=== PATIENT | female | born 1960 | race Caucasian/White ===

== ENCOUNTER 2023-07-06 04:39 | Emergency (ER) | payer BC, SELFPAY ==
[2023-07-06 05:00] VITALS: BP 143/91
[2023-07-06 05:01] VITALS: BP 143/91
[2023-07-06 05:05] LABS: % Basophils 0.9 % (0-2); % Eosinophils 0.5 % (0-6); % Immature Granulocytes 0.4 % (0-0.5); % Lymphocytes 17.5 % (20.5-51.1); % Monocytes 7.6 % (1.7-9.3); % Neutrophils 73.1 % (42.2-75.2); Absolute Basophils 0.1 10^3/uL (0-0.2); Absolute Eosinophils 0.1 10^3/uL (0-0.7); Absolute Immature Granulocytes 0.1 10^3/uL (0-0.05); Absolute Monocytes 0.9 10^3/uL (0.1-0.6); Absolute Neutrophils 8.5 10^3/uL (1.4-6.5); Hemoglobin 13.5 g/dL (12.0-16.0); Mean Corp Hgb Conc. 34.6 g/dL (33.0-37.0); Mean Corpuscular Hgb 29.2 pg (27.0-31.0); Mean Corpuscular Volume 84.2 fL (81.0-99.0); Nucleated Red Blood Cells % 0 %; Platelet Count 300 10^3/uL (130-400); Red Blood Cell Count 4.63 10^6/uL (4.20-5.40); Red Cell Dist. Width 13.6 % (11.5-14.5); White Blood Cell Count 11.6 10^3/uL (4.8-10.8)
[2023-07-06 05:19] LABS: ALT (SGPT) 49 U/L (0-35); AST (SGOT) 30 U/L (14-36); Albumin 4.7 g/dl (3.5-5.0); Alkaline Phosphatase 104 U/L (38-126); Blood Urea Nitrogen 19 mg/dl (7-17); Calcium 9.9 mg/dl (8.4-10.2); Carbon Dioxide 26 mmol/L (22-30); Chloride 108 mmol/L (98-107); Estimated Creatinine Clearance 80 ml/min; Glucose 107 mg/dl (70-99); Potassium 4.2 mmol/L (3.5-5.1); Sodium 139 mmol/L (135-145); Total Bilirubin 0.5 mg/dl (0.2-1.3); Total Protein 7.5 g/dl (6.3-8.2); eGFR > 60.00
[2023-07-06 05:31] LABS: Troponin I < 0.012 ng/ml
[2023-07-06 06:00] VITALS: BP 137/89
--- NOTE | 2023-07-06 06:24 | ED.GENMED ---
History of Present Illness
General
Chief Complaint: Chest Pain
Time Seen by Provider: 07/06/23 06:24
Travel History
Have you had any contact with someone who has COVID-19?: No
Do you have any symptoms of coronavirus? Fever > 100 degrees, chills, cough, shortness of breath, sore throat, loss of taste or smell, muscle aches, or headache?: No
History of Present Illness
History of Present Illness:
HPI: Patient presents with chest discomfort. This described as an achiness. She has no exertional symptoms. The symptoms can come on at any time. Tonight at around 3 AM, woke her from sleep. She has had issues with GI symptoms in the
past/reflux. She is currently taking esomeprazole and also is on Pepcid.
EXAM:
GENERAL: Well appearing in no distress
HEENT: Moist oral mucosa
CARDIOVASCULAR: No murmurs, normal heart rate, regular rhythm, No chest wall tenderness
PULMONARY: No respiratory distress, breath sounds are clear and equal
ABDOMEN: Soft with no peritoneal signs, no tenderness
NEUROLOGIC: Excellent strength all extremities, no coordination deficits
PSYCHIATRIC: Appropriate mental status, normal insight and judgement
EXTREMITIES: Nontender, no edema, moves all extremities equally
SKIN: No rash, no lesions
TIME OF INITIAL ENCOUNTER: 6:30 AM
NUMBER AND COMPLEXITY OF PROBLEMS ADDRESSED AT THE ENCOUNTER
� Chronic conditions affecting care: High blood pressure, hyperlipidemia, GERD, depression, PTSD
� Acute Exacerbation and/or Progression of Chronic Illness: This is an acute problem
� Differential Diagnosis includes: GERD/reflux, ACS, pneumonia/pneumothorax very unlikely, chest wall pain
AMOUNT AND/OR COMPLEXITY OF DATA TO BE REVIEWED AND ANALYZED
� I performed an independent evaluation of and my interpretation is:
EKG: Sinus 73, leftward axis deviation no acute ST abnormality
CT:
X-rays: Chest x-ray shows no acute abnormality
Laboratory Studies: White count 11.6, hemoglobin normal, chemistries unremarkable, troponin less than 0.012
Other:
� Review of other/old records: The patient was seen here this past February with chest pain
� Clinical information was obtained by an independent historian: I spoke to the at bedside
� Prescriptions/Medications Considered but not given:
� Further testing considered but not performed:
RISK OF COMPLICATIONS AND/OR MORBIDITY OR MORTALITY OF PATIENT MANAGEMENT
� Social determinants of health affecting care: Lives at home
� Discussion with other providers: Dr. Sahni at 8 AM - he recommends admission to the hospital if patient symptoms are so severe to help expedite endoscopy but would likely not be able to be performed until tomorrow;
hospitalist for admission
� Escalation of care including admission/observation vs risk of discharge considered: EKG and troponin unremarkable, will try GI meds including Carafate. She is already on PPI/H2 dasha. On reassessment at 8 AM after meds
given, she reports no significant symptoms and states that her pain is still severe however she appears fairly comfortable to me. I have added higher dose of PPI.
Phy Exam
Physical Exam
Physical Exam:
See HPI
Scores
Heart Score for Chest Pain Patients
STEMI patient?: Not applicable
Course
Orders/Labs/Results
Orders:
Orders
07/06/23 04:40
Electrocardiogram (*1) Urgent
Reason for Study: Chest Pain
EKG- Treatment ONCE
07/06/23 04:57
CMP [Comprehensive Metabolic Panel] Urgent
Complete Blood Count/With Diff Urgent
Troponin I Urgent
07/06/23 06:35
Famotidine [Pepcid] 20 mg IV NOW STA
07/06/23 06:36
CR Chest - 2 Views Urgent
Comment:
Reason For Exam: cp
07/06/23 07:30
Sucralfate Suspension [Carafate Suspension] 1 gm PO ACHS
07/06/23 08:14
Pantoprazole [Protonix IV] 80 mg IV NOW STA
Abnormal Lab Results
07/06/23
04:57
WBC 11.6 H 10^3/uL
(4.8-10.8)
Abs Immat Gran (auto) 0.1 H 10^3/uL
(0-0.05)
Absolute Neuts (auto) 8.5 H 10^3/uL
(1.4-6.5)
Absolute Monos (auto) 0.9 H 10^3/uL
(0.1-0.6)
Lymphocytes % 17.5 L %
(20.5-51.1)
Chloride 108 H mmol/L
(98-107)
BUN 19 H mg/dl
(7-17)
Glucose 107 H mg/dl
(70-99)
ALT 49 H U/L
(0-35)
07/06/23 04:57
07/06/23 04:57
Vital Signs
Initial and Last Documented VS:
Initial Vital Signs
Pulse Resp Pulse Ox
80 22 98
07/06/23 04:44 07/06/23 04:44 07/06/23 04:44
Last Documented Vital Signs
Temp Pulse Resp BP Pulse Ox
98.2 F 77 21 142/104 95
07/06/23 04:53 07/06/23 07:30 07/06/23 07:30 07/06/23 07:00 07/06/23 06:30
*Critical Care Note
Total Time (30-74mins, 75-104mins- exclusive of procedures): Not Applicable
ED Attending Note
-
Portions of this chart may have been created with voice recognition software.� Occasional wrong word or��sound alike� substitutions may have occurred due to the inherent limitations of voice recognition software.
Discharge Plan
Departure
Patient Disposition: Admit
Date of Disposition: 07/06/23
Time of Disposition: 08:09
Presentation/result/management discussed w/ accepting MD/DO: Hospitalist
Discharge Problem:
Chest pain
Prescriptions:
No Action
cetirizine [Zyrtec] 10 mg Tablet
10 mg PO DAILY
famotidine 40 mg Tablet
40 mg PO DAILY
levothyroxine 75 mcg Tablet
75 mcg PO DAILY
lorazepam 0.5 mg Tablet
0.5 mg PO HS
amlodipine 10 mg Tablet
10 mg PO DAILY
esomeprazole magnesium 40 mg Capsule,Delayed Release(Dr/Ec)
40 mg PO Daily
valsartan 320 mg Tablet
360 mg PO DAILY
duloxetine 60 mg Capsule,Delayed Release(Dr/Ec)
90 mg PO DAILY
Rx Instructions:
60mg + 30mg dose
cholecalciferol (vitamin D3) [Vitamin D3] 25 mcg (1,000 unit) Tablet
25 mcg PO DAILY
omega 8-tbw-che-fish oil [Fish Oil] 1,200 (144-216) mg Capsule
1 cap PO DAILY
pitavastatin calcium [Livalo] 4 mg Tablet
4 mg PO QPM
Referrals:
Wyatt Ramos DO [Family Provider] -
Interventions
Interventions:
*Risk Screen - Suicide Last Done: 07/06/23 04:44
*General Assessment Last Done: 07/06/23 04:49
*Neglect/Abuse Screening Last Done: 07/06/23 04:44
ED- Fall Risk Assessment Last Done: 07/06/23 04:51
*ED COVID-19 Vaccine History Last Done: 07/06/23 04:49
ED- Cardiac Assessment Last Done: 07/06/23 04:51
Discharge Date and Time
Print Language: HEBREW
[2023-07-06] MEDS: CARAFATE SUSPENSION 1 GM PO (06:52)
[2023-07-06] MEDS: PEPCID 20 MG IV (06:52)
[2023-07-06 07:00] VITALS: BP 142/104
[2023-07-06 08:00] VITALS: BP 112/23
[2023-07-06] MEDS: PROTONIX IV 80 MG IV (08:35)
[2023-07-06 10:00] VITALS: BP 120/103
--- NOTE | 2023-07-06 10:05 | CON.GI ---
Addendum entered and electronically signed by Ayla Person MD 07/06/23 15:34:
I saw and examined the patient.
The MIXER HELPER or PA's note was reviewed and I agree with the note.
Comment:
Pt with a hx of breast ca with prior radiation, also gerd, hiatal hernia with previous dilations. She has had intermittent CP, no dysphagia. has been on PPI bid. cardiac w/u negative in ER. No pill lodged, no nsaids. symptoms severe so to the
ER. no hx of cold sores.
abd: soft, nontender
impression
gerd
odynophagia
plan:
PPI bid
maalox/lidocaine
EGD in am
ok for soft foods until then.
Addendum entered and electronically signed by ALLISON Chowdary 07/06/23 11:45:
Pt denies NSAID use
Original Note:
Consultation
-
Date/Time Consultation Requested: 07/06/23 0900
Date/Time Consultation Performed: 07/06/23 1000
Requesting Provider: Indra Felder DO
Performing Provider: ALLISON Caruso, Ayla Person MD
Reason for Consultation: chest pain
Medical History
Chief Complaint / HPI
Chief Complaint: chest pain
History of Present Illness:
Pt is a 62yo with hx breast CA with prior surgery and radiation, GERD, hiatal hernia, prior esophageal dilation overactive bladder with bladder implant, endometrial ablation with onset of chest pain. She had similar symptoms in past and follows
with Dr. Seth Obrien in [place]. She has been on Esomeprozole 40mg BID and Famotidine 40mg daily. She states hx prior esophageal dilation last about 1-2 years ago. She began several weeks ago with chest pain/chest ache then severe symptoms
over last 2 days. She was seen in ER today with stable troponin and EKG. She was give GI cocktail with Maalox, Lidocaine and with improvement and asked to see.
She admits to some odynophagia and occasional dysphagia in past. She does experience some GERD. She also admits to period of feeling sweaty or hot that have been going on for some time. No nausea/vomiting/hematemesis or wt loss. She does
have occasional constipation with citracel use but no diarrhea, rectal bleeding, or abdominal pain. Last colonoscopy about 1 year ago.
Past Medical History
Past Medical History: Cancer (breast CA 2016 with prior surgery, breast reduction and reconstruction and radiation) and Other (overactive bladder, Hiatal hernia, esophageal dilation, GERD)
Past Surgical History: Tonsilectomy and Other (plastic surgery on ear, endometrial ablation, lasik surgery, mole removal, bladder surgery with bladder implant)
Social History
Tobacco: Non-Smoker
Alcohol: Occasional
Drug: None
Personal:
Living: With Family
Employment: Retired (semi retired)
Family History
Family History: Other (family hx colon CA - father)
Allergies / Home Medications
Allergy/AdvReac Type Severity Reaction Status Date / Time
No Known Allergies Allergy Verified 07/06/23 04:46
�Medication �Instructions �Recorded
Calcium Adult Gummy W/ D3 2 gummy PO DAILY 07/06/23
Lactobac no.2-Bifidobac no.1-S. 1 cap PO DAILY 07/06/23
thermo 112.5 billion cell capsule
(Visbiome)
amlodipine 10 mg tablet 10 mg PO DAILY 07/06/23
cetirizine 10 mg tablet (Zyrtec) 10 mg PO DAILY 07/06/23
cholecalciferol (vitamin D3) 25 25 mcg PO DAILY 07/06/23
mcg (1,000 unit) tablet (Vitamin
D3)
coenzyme Q10 100 mg capsule 100 mg PO HS 07/06/23
(CoQ-10)
duloxetine 30 mg capsule,delayed 30 mg PO DAILY 07/06/23
release
duloxetine 60 mg capsule,delayed 60 mg PO DAILY 07/06/23
release
famotidine 40 mg tablet 40 mg PO HS 07/06/23
fluoride (sodium) 1.1 % dental 1 applic dental HS 07/06/23
paste (Sodium Fluoride 5000 Dry
Mouth)
levothyroxine 75 mcg tablet 75 mcg PO DAILY 07/06/23
lorazepam 0.5 mg tablet 0.5 mg PO HS 07/06/23
methylcellulose (laxative) 1 tbsp PO DAILY 07/06/23
(Citrucel Sugar Free oral powder)
methylcellulose (laxative) 500 mg 1,000 mg PO DAILY PRN constipation 07/06/23
tablet (Citrucel) while traveling
multivitamin with minerals-folic 2 tab PO DAILY 07/06/23
acid 200 mcg chewable tablet
(Multivitamin Gummies)
omega 3-kgy-jxd-fish oil 1,200 mg 1 cap PO DAILY 07/06/23
(144 mg-216 mg) capsule (Fish Oil)
omeprazole 40 mg capsule,delayed 40 mg PO BID 07/06/23
release
pitavastatin calcium 4 mg tablet 4 mg PO HS 07/06/23
valsartan 320 mg tablet 320 mg PO HS 07/06/23
Review of Systems
-
History Source: Patient and Family
Constitutional: Reports Other (sweats/hot flashes)
EENT: Reports Other (dysphagia, odynophagia)
Respiratory: Reports No Symptoms
Cardiac: Reports Chest Pain
Abdomen/GI: Reports Constipated
: Reports Other (hx overactive bladder with stimulator)
Musculoskeletal: Reports No Symptoms
Skin: Reports No Symptoms
Neurological: Reports Weakness
Endocrine: Reports No Symptoms
Hematologic/Lymphatic: Reports No Symptoms
Vital Signs
Temp Pulse Resp BP Pulse Ox
98.2 F 73 14 112/23 96
07/06/23 04:53 07/06/23 08:30 07/06/23 08:30 04/30/24 08:00 07/06/23 08:30
Physical Exam
Exam
General: Well Developed, Well Nourished and No Apparent Distress
HEENT: Normocephalic and Anicteric
Respiratory: Clear
Cardiac: Regular Rhythm
GI: Soft, Non Tender and Non Distended
Skin: Warm and Dry
Neuro: Awake, Alert and AO x 3
Psych: Calm
Results
WBC 11.6 10^3/uL (4.8-10.8) H 07/06/23 04:57
Hgb 13.5 g/dL (12.0-16.0) 04 04:57
Hct 39.0 % (37.0-47.0) 07/06/23 04:57
MCV 84.2 fL (81.0-99.0) 07/06/23 04:57
Plt Count 300 10^3/uL (130-400) 07/06/23 04:57
Absolute Neuts (auto) 8.5 10^3/uL (1.4-6.5) H 07/06/23 04:57
Sodium 139 mmol/L (135-145) 07/06/23 04:57
Potassium 4.2 mmol/L (3.5-5.1) 07/06/23 04:57
Chloride 108 mmol/L (98-107) H 07/06/23 04:57
Carbon Dioxide 26 mmol/L (22-30) 07/06/23 04:57
BUN 19 mg/dl (7-17) H 07/06/23 04:57
Creatinine 0.7 mg/dL (0.6-1.0) 07/06/23 04:57
Calcium 9.9 mg/dl (8.4-10.2) 07/06/23 04:57
Total Bilirubin 0.5 mg/dl (0.2-1.3) 07/06/23 04:57
AST 30 U/L (14-36) 07/06/23 04:57
ALT 49 U/L (0-35) H 07/06/23 04:57
Alkaline Phosphatase 104 U/L (38-126) 07/06/23 04:57
Diagnostic Image Results:
CXR pending
02/2023 CT chest
1. No evidence of pulmonary embolism.
2. No significant acute abnormality identified in the chest, as described above.
3. Small hiatal hernia.
Prior GI Procedures:
EGD: several in past last 1-2 years ago with dilation
Colonoscopy: last 1 year ago with dilation
Assessment / Plan
-
Pt is a 62yo with hx breast CA with prior surgery and radiation, GERD, hiatal hernia, prior esophageal dilation overactive bladder with bladder implant, endometrial ablation with onset of chest pain. She had similar symptoms in past and follows
with Dr. Seth Obrien in [place]. She has been on Esomeprozole 40mg BID and Famotidine 40mg daily. She states hx prior esophageal dilation last about 1-2 years ago. She began several weeks ago with chest pain/chest ache then severe symptoms
over last 2 days. She was seen in ER today with stable troponin and EKG. She was give GI cocktail with Maalox, Lidocaine and with improvement and asked to see.
She admits to some odynophagia and occasional dysphagia in past. She does experience some GERD. She also admits to period of feeling sweaty or hot that have been going on for some time. No nausea/vomiting/hematemesis or wt loss. She does
have occasional constipation with citracel use but no diarrhea, rectal bleeding, or abdominal pain.
-chest pain with neg trop and stable EKG improved with GI cocktail in ER
-hx prior chest pain with prior esophageal dilations
-breast CA with prior surgery and radiation
-hiatal hernia
-GERD on chronic PPI and Famotidine
-overactive bladder
-family hx colon CA
PLAN:
etiology of symptoms related to esophagitis, ? effect of prior breast radiation, GERD, vs other
cardiac work up neg in ER
improved with GI cocktail in ER
plan for EGD outpatient tomorrow
pt was discharged from ER-- a script was sent to [facility] for lidocaine-- I reviewed with her she prefers combo with Maalox/Benadryl/lidocaine- [facility]
will attempt to get OP prior EGD/colon from Dr. Obrien
all questions answered
Dr. Person set up for EGD in AM
-
-
Thank you for consultation and allowing me to participate in the patient's care. Please call the contract assistant GI physician during the after hours with any questions or concerns.
[2023-07-06] MEDS: MAALOX 50 PO (10:15)
--- NOTE | 2023-07-06 10:29 | ED.ADDNOTE ---
ED Addendum
ED Addendum
ED Addendum Note:
After patient was plan for admission, Dr. Person evaluated the patient and was able to arrange for outpatient follow-up tomorrow for EGD. The patient feels significantly improved after viscous lidocaine was given in the ED.
== END 2023-07-06 10:36 | disposition home or self-care (01) ==
LOC: EMR 04:39
PROVIDERS: Emergency Medicine; CONSULT PHYSICIAN Internal Medicine; EMERGENCY PHYSICIAN Emergency Medicine; FAMILY PHYSICIAN Family Medicine
DX: R07.89 Other chest pain (principal); E78.00 Pure hypercholesterolemia, unspecified; K21.9 Gastro-esophageal reflux disease without esophagitis; Z80.0 Family history of malignant neoplasm of digestive organs; Z85.3 Personal history of malignant neoplasm of breast; Z92.3 Personal history of irradiation
CPT/HCPCS: 99283; 96374; 96375; 71046; 80053; 84484; 85025; 93005

== ENCOUNTER → 2023-07-07 10:34 | Day surgery (SDC) | payer BC, SELFPAY | LOC: GI 10:34 | PROVIDERS: ATTENDING PHYSICIAN Internal Medicine | DX: R13.10 Dysphagia, unspecified (principal); K22.2 Esophageal obstruction; K44.9 Diaphragmatic hernia without obstruction or gangrene; K29.50 Unspecified chronic gastritis without bleeding; K31.9 Disease of stomach and duodenum, unspecified | CPT/HCPCS: 43249; 43239; 88305; 88342 ==

== ENCOUNTER → 2023-07-09 09:37 | Outpatient (REF) | payer BC, SELFPAY | LOC: RAD 09:37 | PROVIDERS: ATTENDING PHYSICIAN Internal Medicine; FAMILY PHYSICIAN Family Medicine | DX: K44.9 Diaphragmatic hernia without obstruction or gangrene (principal); R07.89 Other chest pain | CPT/HCPCS: 74246 ==

== ENCOUNTER → 2023-08-19 07:35 | Outpatient (REF) | payer MEDICARE, OTHER, SELFPAY | LOC: RAD 07:35 | PROVIDERS: ATTENDING PHYSICIAN Internal Medicine; FAMILY PHYSICIAN Family Medicine | DX: K21.9 Gastro-esophageal reflux disease without esophagitis (principal) | CPT/HCPCS: 78264; A9541 ==

== ENCOUNTER → 2024-01-18 10:54 | Outpatient (REF) | payer MEDICARE, OTHER, SELFPAY | LOC: RAD 10:54 | PROVIDERS: ATTENDING PHYSICIAN Internal Medicine; FAMILY PHYSICIAN Family Medicine | DX: M54.9 Dorsalgia, unspecified (principal) | CPT/HCPCS: 72110 ==

== ENCOUNTER → 2024-03-07 06:33 | Outpatient (REF) | payer MEDICARE, OTHER, SELFPAY | LOC: PAVMRI 06:33 | PROVIDERS: ATTENDING PHYSICIAN Physician Assistant; FAMILY PHYSICIAN Family Medicine; REFERRING PHYSICIAN Internal Medicine | DX: M54.9 Dorsalgia, unspecified (principal) | CPT/HCPCS: 72148 ==

== ENCOUNTER 2024-07-14 11:20 | Emergency (ER) | payer MEDICARE, OTHER, SELFPAY ==
[2024-07-14 11:31] VITALS: BP 131/86
--- NOTE | 2024-07-14 12:17 | ED.GENMED ---
History of Present Illness
General
Chief Complaint: Musculo-Skeletal Complaint
Source: patient
Exam Limitations: none
Time Seen by Provider: 07/14/24 12:03
History of Present Illness
History of Present Illness:
Patient jammed her toe yesterday. Complaining of pain and swelling and bruising. No other injury or complaint
Phy Exam
Physical Exam
Physical Exam:
General: Nontoxic appearing in no distress
Skin: Warm and dry, no rash
Neuro: Alert, nontoxic, grossly nonfocal
Psychiatric: Good eye contact and appropriate
Musculoskeletal: Ecchymosis to the right first toe with tenderness at the IP joint. Nail is okay. No proximal foot tenderness. All other digits unremarkable. Ankle stable. Achilles intact.
Course
Orders/Labs/Results
Orders:
Orders
07/14/24 11:37
CR Toe(s) Min 2 Vw Right Urgent
Comment:
Reason For Exam: injruy
07/14/24 12:07
Edwin Tape Right-Treatment ONCE
Cast Shoe Right-Treatment ONCE
Vital Signs
Initial and Last Documented VS:
Initial Vital Signs
Temp Pulse Resp BP Pulse Ox
98.4 F 87 16 131/86 96
07/14/24 11:31 07/14/24 11:31 07/14/24 11:31 07/14/24 11:31 07/14/24 11:31
Last Documented Vital Signs
Temp Pulse Resp BP Pulse Ox
98.4 F 87 16 131/86 96
07/14/24 11:31 07/14/24 11:31 07/14/24 11:31 07/14/24 11:31 07/14/24 11:31
*Radiology
Radiology exam reviewed: preliminary read by ED provider (Distal first toe fracture)
*Pulse Oximetry
Patient hypoxic: no
*Critical Care Note
Total Time (30-74mins, 75-104mins- exclusive of procedures): Not Applicable
ED Attending Note
-
Portions of this chart may have been created with voice recognition software.� Occasional wrong word or��sound alike� substitutions may have occurred due to the inherent limitations of voice recognition software.
Discharge Plan
Departure
Patient Disposition: Home (Routine Discharge)
Date of Disposition: 07/14/24
Time of Disposition: 12:18
Patient with high blood pressure during this ER visit?: Yes
Discharge Problem:
Right first toe fracture
Instructions: Toe Fracture ED, BLOOD PRESSURE
Prescriptions:
No Action
cetirizine [Zyrtec] 10 mg Tablet
10 mg PO DAILY
famotidine 40 mg Tablet
40 mg PO HS
levothyroxine 75 mcg Tablet
75 mcg PO DAILY
lorazepam 0.5 mg Tablet
0.5 mg PO HS
amlodipine 10 mg Tablet
10 mg PO DAILY
valsartan 320 mg Tablet
320 mg PO HS
duloxetine 60 mg Capsule,Delayed Release(Dr/Ec)
60 mg PO DAILY
Rx Instructions:
07/06/2023, take with 30 mg for a total of 90 mg.
cholecalciferol (vitamin D3) [Vitamin D3] 25 mcg (1,000 unit) Tablet
25 mcg PO DAILY
omega 1-gia-drf-fish oil [Fish Oil] 1,200 (144-216) mg Capsule
1 cap PO DAILY
omeprazole 40 mg Capsule,Delayed Release(Dr/Ec)
40 mg PO BID
Citrucel 500 mg Tablet
1,000 mg PO DAILY PRN (Reason: constipation while traveling)
Citrucel Sugar Free Powder
1 tbsp PO DAILY
coenzyme Q10 [CoQ-10] 100 mg Capsule
100 mg PO HS
fluoride (sodium) [Sodium Fluoride 5000 Dry Mouth] 1.1 % Paste
1 applic DENTAL HS
Visbiome 112.5 billion cell Capsule
1 cap PO DAILY
pitavastatin calcium 4 mg tablet
4 mg PO HS
multivit with min-folic acid [Multivitamin Gummies] 200 mcg Tablet,Chewable
2 tab PO DAILY
Calcium Adult Gummy W/ D3
2 gummy PO DAILY
duloxetine 30 mg capsule,delayed release(DR/EC)
30 mg PO DAILY
Rx Instructions:
07/06/2023, take with 60 mg for a total of 90 mg.
lidocaine HCl [Lidocaine Viscous] 2 % solution
10 ml PO BID Qty: 140 0RF
Referrals:
Gt Daniels MD [Active] - Follow up in 5-7 days
Interventions
Interventions:
*Risk Screen - Suicide Last Done: 07/14/24 11:31
*General Assessment Last Done: 07/14/24 11:31
*Neglect/Abuse Screening Last Done: 07/14/24 11:31
*ED- Fall Risk Assessment Last Done: 07/14/24 11:31
*ED COVID-19 Vaccine History Last Done: 07/14/24 11:31
*Nursing Disposition Last Done: 07/14/24 13:05
ED-Musculoskeletal Assessment Last Done: 07/14/24 12:34
Discharge Date and Time
Discharge Date/Time: 07/14/24 13:06
Print Language: ALBANIAN
== END 2024-07-14 13:06 | disposition home or self-care (01) ==
LOC: EMR 11:20
PROVIDERS: EMERGENCY PHYSICIAN Emergency Medicine; FAMILY PHYSICIAN Family Medicine
DX: S92.421A Displaced fracture of distal phalanx of right great toe, initial encounter for closed fracture (principal); W23.0XXA Caught, crushed, jammed, or pinched between moving objects, initial encounter
CPT/HCPCS: 99283; 73660

== ENCOUNTER → 2024-09-25 14:57 | Outpatient (REF) | payer MEDICARE, OTHER, SELFPAY | LOC: HWRAD 14:57 | PROVIDERS: ATTENDING PHYSICIAN Urology; FAMILY PHYSICIAN Family Medicine | DX: N28.1 Cyst of kidney, acquired (principal) | CPT/HCPCS: 76775 ==